=== PATIENT | female | born 1975 ===

== ENCOUNTER 2020-09-26 18:59 | Emergency (ER) | payer BC, SELFPAY ==
[2020-09-26 19:00] VITALS: BP 178/121; PULSE 80; RESP 18; TEMP 36.5; O2SAT 99
--- NOTE | 2020-09-26 21:00 | PC.NURSE ---
provider has been at the bedside for approximately 1 hour to attempt to remove wedding ring from patient's left middle finger. see provider notes. patient tolerated well but ring not removed yet.
--- NOTE | 2020-09-26 21:45 | PC.NURSE ---
patient's left hand placed in ice per provider orders. provider now in room to pry ring apart. able to cut thru top part of ring. patient states she is tolerating well.
--- NOTE | 2020-09-26 22:14 | PC.NURSE ---
provider in room attempting to remove ring.
--- NOTE | 2020-09-26 22:40 | ED.GENADULT ---
HPI - General Adult General Chief complaint: Extremity Injury, Upper Stated complaint: ring stuck on finger Time Seen by Provider: 09/26/20 19:54 Source: patient Mode of arrival: ambulatory Limitations: no limitations History of Present Illness HPI narrative: Patient presents with chief complaint of tungsten ring stuck on her left middle finger. Patient states that she woke up this morning with the finger swelling as she does not normally wear on this finger and was not able to get the ring off. Patient states that she presented to urgent care however the ring cutter cannot get there and so they directed her to the emergency department. Patient still has full sensation to the digit. Related Data Allergies Allergy/AdvReac Type Severity Reaction Status Date / Time No Known Allergies Allergy Verified 09/26/20 19:50 Review of Systems Review of Systems: Narrative: CONSTITUTIONAL: Denies fever, chills, or sweats. EYES: Denies visual changes, redness, or discharge. ENT: Denies rhinorrhea, congestion, sore throat, or otalgia. CARDIOVASCULAR: Denies chest pain, palpitations, or edema. RESPIRATORY: Denies cough or dyspnea. SKIN: Reports swollen left middle finger with stuck ring MUSCULOSKELETAL: Denies back pain, joint pain, or myalgia. NEUROLOGIC: Denies headache, numbness, dizziness, or weakness. PSYCHIATRIC: Denies anxiety or depression. Exam Narrative: Exam Narrative: GENERAL: Well-appearing, well-nourished, and in no acute distress. HEAD: Normocephalic, atraumatic. EYES: PERRLA and EOMI. EXTREMITIES: Swelling left middle finger with tungsten ring stuck at the distal aspect. SKIN: Warm, dry, no rash. NEURO: No focal deficits. Alert and oriented x3. PSYCH: Normal mood and affect. Course Vital Signs Vital signs: Vital Signs Temperature 97.7 F 09/26/20 19:00 Pulse Rate 80 09/26/20 19:00 Respiratory Rate 18 09/26/20 19:00 Blood Pressure 178/121 H 09/26/20 19:00 Pulse Oximetry 99 09/26/20 19:00 Temperature 97.7 F 09/26/20 19:00 Pulse Rate 80 09/26/20 19:00 Respiratory Rate 18 09/26/20 19:00 Blood Pressure 178/121 H 09/26/20 19:00 Pulse Oximetry 99 09/26/20 19:00 Procedures Other Procedure Procedure 1: Other Procedure: Ring cutter had to be used to cut threw both sides of the ring as the stregnth of the tungesten and the swelling would allow it to be spread with one cut. Patient did have abrasion to the dorsal aspect. She states from sticking things under it trying to get it off. Sensation, ROM, cap refill intact. No complicating factors. Medical Decision Making Vital Signs Vital Signs: Vital Signs Temperature 97.7 F 09/26/20 19:00 Pulse Rate 80 09/26/20 19:00 Respiratory Rate 18 09/26/20 19:00 Blood Pressure 178/121 H 09/26/20 19:00 Pulse Oximetry 99 09/26/20 19:00 Temperature 97.7 F 09/26/20 19:00 Pulse Rate 80 09/26/20 19:00 Respiratory Rate 18 09/26/20 19:00 Blood Pressure 178/121 H 09/26/20 19:00 Pulse Oximetry 99 09/26/20 19:00 Discharge Plan Discharge Clinical Impression: Foreign body finger Abrasion of finger of left hand Qualifiers: Encounter type: initial encounter Qualified Code(s): S60.419A - Abrasion of unspecified finger, initial encounter Patient Disposition: Home, Self-Care Condition: Improved Instructions: Antibiotic Form, Abrasion (ED) Additional Instructions: Wash abrasion with antibacterial soap and apply antibacterial ointment. Follow-up with your primary care if any signs of infection present. Elevate, apply ice and cool compresses to help decrease swelling. Return to emergency department if you have any emergent symptoms. Follow-up/Referrals: Stephany,Jt Genao MD [Primary Care Provider] - Stand Alone Forms: Work/School Release IP Time of Disposition: 22:45
== END 2020-09-26 22:53 | disposition home or self-care (01) ==
PROVIDERS: Emergency Provider Emergency Medicine; PCP Internal Medicine
DX: S60.419A Abrasion of unspecified finger, initial encounter (principal); W49.04XA Ring or other jewelry causing external constriction, initial encounter
CPT/HCPCS: 99282